=== PATIENT | male | born 2000 | race Two or more races ===

== ENCOUNTER 2025-05-17 17:21 | Emergency (ER) | payer OTHER, SELFPAY ==
[2025-05-17 17:22] VITALS: BMI 21.9
[2025-05-17 17:41] VITALS: BP 162/92; PULSE 95; RESP 18; TEMP 36.6; O2SAT 98
--- NOTE | 2025-05-17 17:42 | PD.EDRME ---
Rapid Medical Screening Exam RME Arrival date/time: 05/17/25 17:21 Chief Complaint: Chest Pain Time Seen by Provider: 05/17/25 17:40 Vital signs: Vital Signs Temperature 97.8 F 05/17/25 17:41 Pulse Rate 95 05/17/25 17:41 Respiratory Rate 18 05/17/25 17:41 Blood Pressure 162/92 H 05/17/25 17:41 Pulse Oximetry (%) 98 05/17/25 17:41 Oxygen Delivery Method Room Air 05/17/25 17:41 RME Narrative: Left-sided chest and abdominal pain x 1 week. Denies n/v/d or urinary symptoms. Hx POTS, gastritis, GERD
--- NOTE | 2025-05-17 18:36 | PD.EDCHEST ---
ED Chest Pain RME/HPI General Chief Complaint: Chest Pain Stated Complaint: LEFT SIDE CHEST PAIN AN ABD PAIN Time Seen by Provider: 05/17/25 17:40 Arrival date/time: 05/17/25 17:21 RME / HPI RME / HPI narrative: Left-sided chest and abdominal pain x 1 week. Denies n/v/d or urinary symptoms. Hx POTS, gastritis, GERD See [facility] for Dr. Zabala's HPI documentation. Related Data Allergies Allergy/AdvReac Type Severity Reaction Status Date / Time mirtazapine Allergy Verified 05/17/25 17:26 Review of Systems Review of Systems Systems Reviewed: All systems reviewed, normal except as documented ED Exam Narrative Physical exam: See [facility] for Dr. Zabala's physical exam documentation. Course Course Course Narrative: CXR is ordered for determining the etiology of chest pain. Quality Measures none Orders Category Date Time Status CT abdomen pelvis w con Stat Exams 05/17/25 18:06 Stop Req CXR [XR chest 1V] Stat Exams 05/17/25 17:43 Ordered CBC Stat Lab 05/17/25 17:43 Ordered CMP [Comprehensive Metabolic Panel] Stat Lab 05/17/25 17:43 Ordered Drug Screen,Urine Stat Lab 05/17/25 17:43 Ordered Lipase Stat Lab 05/17/25 17:43 Ordered Troponin I Stat Lab 05/17/25 17:43 Ordered UA [Urinalysis] Stat Lab 05/17/25 17:43 Ordered Vital Signs Vital signs: Vital Signs Temperature 97.8 F 05/17/25 17:41 Pulse Rate 95 05/17/25 17:41 Respiratory Rate 18 05/17/25 17:41 Blood Pressure 162/92 H 05/17/25 17:41 Pulse Oximetry (%) 98 05/17/25 17:41 Oxygen Delivery Method Room Air 05/17/25 17:41 Chest Pain [facility] Narrative [facility] Narrative:: This section includes all my notes and documentations, including HPI, PE, and ED course. Leander Zabala MD HPI: 24yo male ROS: All negative except as documented in HPI. Physical Exam: General: Alert and oriented. No acute distress when remaining still. Eyes: Conjunctivae and lids clear. ENT: No nasal congestion. Neck: Supple. Heart: RRR. Lungs: No respiratory distress. Good air movement. No rhonchi, wheezing, rales. Abdomen: Soft and nontender. Normal bowel sounds. No distension. No rebound or guarding. Back: No CVA tenderness. Skin: Warm and dry. Neuro: Alert and oriented X 3. I reviewed all diagnostic test results. My interpretation of the EKG is My interpretation of the chest x-ray is My review of the CT report is Blood tests and urine tests At this point, diagnoses include Treatment here included Significant improvement Not yet done: I discussed the case with our hospitalist. About the presentation and exam and diagnostics and treatments here. And need of further care in the hospital. Will accept the patient. Not yet done: Based on my best medical judgment, made decision no further evaluation or treatment indicated at this time. Patient understands and agrees to the discharge instructions customized and printed, see below. Leander Zabala MD Patient data External records reviewed:: [facility] previous records (Per chart review, patient has no previous ED visits or admissions to this facility.) Clinical information provided by:: patient Social determinants that could affect healthcare access:: none Patient has the following chronic illnesses:: POTS How is presenting disease/condition affected by chronic disease/condition?: exacerbated by Evaluation data The following diagnostics were reviewed and interpreted by me:: lab results, radiology exam(s) and EKG tracing(s) Lab and/or radiology exams considered but not ordered:: none Medications / Prescriptions Medications or Prescriptions considered but not ordered:: none Discharge Plan Prescriptions/Referrals Referrals: Louie Porter MD [Primary Care Provider] - In 1 week Patient/Caregiver Discharge Instructions Print Language: Kiswahili
--- NOTE | 2025-05-17 19:25 | PD.EDADDENDU ---
Emergency Room Addendum Addendum Narrative: When I looked for the patient to start my evaluation, I was told the patient eloped. Leander Zabala MD
== END 2025-05-17 19:30 | disposition left against medical advice (07) ==
PROVIDERS: Emergency Provider Emergency Medicine; PCP Internal Medicine Hospice and Palliative Medicine
DX: R07.89 Other chest pain (principal); R10.9 Unspecified abdominal pain; Z53.29 Procedure and treatment not carried out because of patient's decision for other reasons
CPT/HCPCS: 80053; 80307; 81001; 83690; 84484; 85025; 99281